=== PATIENT | female | born 1985 | race Two or more races ===

== ENCOUNTER 2018-11-20 11:15 | Inpatient (IN) | payer OTHER ==
[~2018-11-20] VITALS: Ht 152.4 cm; Wt 56.2 kg
== END 2018-12-14 10:56 | DRG 807 ==
LOC: LDR 12-12 06:11 → OB/GYN 12-12 07:47
PROVIDERS: ADMIT Obstetrics & Gynecology
PROC: 10E0XZZ Delivery of Products of Conception, External Approach (ICD-10-PCS; principal; 2018-12-12)
PROC: 4A1HXCZ Monitoring of Products of Conception, Cardiac Rate, External Approach (ICD-10-PCS; 2018-12-12)
PROC: 0UQGXZZ Repair Vagina, External Approach (ICD-10-PCS; 2018-12-12)
DX: O71.4 Obstetric high vaginal laceration alone (principal); Z37.0 Single live birth; Z3A.39 39 weeks gestation of pregnancy; Z22.330 Carrier of Group B streptococcus

== ENCOUNTER 2018-11-22 09:28 | Outpatient (CLI) | payer OTHER | END 2018-11-22 10:45 | disposition home or self-care (01) | LOC: NST 09:28 | DX: Z34.83 Encounter for supervision of other normal pregnancy, third trimester (principal) ==

== ENCOUNTER 2018-12-07 09:27 | Outpatient (CLI) | payer OTHER | END 2018-12-07 10:16 | disposition home or self-care (01) | LOC: NST 09:27 | DX: Z34.83 Encounter for supervision of other normal pregnancy, third trimester (principal) ==